=== PATIENT | female | born 1955 | race American Indian/Alaskan Native ===

== ENCOUNTER 2017-10-17 12:26 | Emergency (ER) | payer MEDICARE, OTHER ==
[2017-10-17] MEDS ORDERED: PROTONIX IV ONE (13:11)
[2017-10-17] MEDS ORDERED: ZOFRAN IV ONE (13:11)
[2017-10-17] MEDS ORDERED: NACL 0.9% 1000 ML 1,000 ML IV ONE (13:12)
[2017-10-17] MEDS ORDERED: DILAUDID IV ONE (13:14)
--- NOTE | 2017-10-17 13:14 | Emergency Department Report ---
Blank Doc - Documentation Documentation: 62-year-old female with a history of hypertension, LAP-BAND surgery, and chronic pain for this last complaining of epigastric pain and vomiting after drinking apple juice this a.m. Patient presents with 10/10 upper abdominal pain. On exam patient appears to have discomfort secondary to pain She has epigastric tenderness Labs and meds initiated Patient to be transferred to main side for further treatment
[2017-10-17 13:27] LABS: Bilirubin,Urine NEG (Negative); Blood,Urine NEG (Negative); Color,Urine Yellow (Yellow); Mucus,Urine 3+ /HPF; Urobilinogen,Urine < 2.0 mg/dL (<2.0)
[2017-10-17 13:32] LABS: Basophils # (Auto) 0.1 K/mm3 (0.0-0.1); Basophils % (Auto) 0.5 % (0.0-1.8); Eosinophils # (Auto) 0.1 K/mm3 (0.0-0.4); Eosinophils % (Auto) 0.5 % (0.0-4.3); Hematocrit 41.1 % (30.3-42.9); Hemoglobin 13.6 gm/dl (10.1-14.3); Lymphocytes # (Auto) 2.6 K/mm3 (1.2-5.4); Lymphocytes % (Auto) 19.8 % (13.4-35.0); Mean Corpuscular HGB Conc 33 % (30-34); Mean Corpuscular Hemoglobin 33 pg (28-32); Mean Corpuscular Volume 98 fl (79-97); Monocytes # (Auto) 0.5 K/mm3 (0.0-0.8); Monocytes % (Auto) 4.1 % (0.0-7.3); Platelet Count 253 K/mm3 (140-440); Red Blood Count 4.18 M/mm3 (3.65-5.03); Red Cell Distribution Width 13.7 % (13.2-15.2)
[2017-10-17 13:45] LABS: Alanine Aminotransferase 13 units/L (7-56); Albumin 4.4 g/dL (3.9-5); BUN/Creatinine Ratio 16; Blood Urea Nitrogen 8 mg/dL (7-17); Calcium 9.8 mg/dL (8.4-10.2); Hemolysis Index 2; Lipase 20 units/L (13-60)
--- NOTE | 2017-10-17 13:55 | Emergency Department Report ---
HPI - General Chief Complaint: Nausea/Vomiting/Diarrhea Time Seen by Provider: 10/17/17 13:05 - HPI HPI: Room 3 The patient is a 62-year-old female presenting with a chief complaint of abdominal pain. The patient states she was in her usual state of health until this morning when she developed midepigastric abdominal cramping after drinking apple juice. Patient states she had nausea and vomiting 3 episodes and one episode of diarrhea. Patient states the pain has been intermittent and she currently gives a score of 10/10. Patient denies dysuria or hematuria. Patient denies any history of fever Location: Epigastric Duration: Intermittent since this morning Quality: Cramping Severity: 10/10 Modifying factors: [see above] Context: [see above] Mode of transportation: [not driving] ED Past Medical Hx - Past Medical History Hx Hypertension: Yes Additional medical history: Under the care of Dr. Childs pain management - chronic back pain - Surgical History Additional Surgical History: Lower back surgery, Lap bnd - Family History Family history: no significant - Social History Smoking Status: Current Every Day Smoker (1/3 pack per day) - Medications Home Medications: Home Medications Medication Instructions Recorded Confirmed Last Taken Type HYDROcodone/ACETAMINOPHEN [Emmett 1 each PO Q6HR PRN #20 tablet 05/13/14 Unknown Rx 7.5-325 mg TAB] Metaxalone [Skelaxin] 800 mg PO TID #30 tablet 05/13/14 Unknown Rx Potassium Chloride [K-Dur] 20 meq PO QDAY #3 tablet 06/22/14 Unknown Rx Promethazine [Phenergan TAB] 25 mg PO Q6H #30 tablet 06/22/14 Unknown Rx methylPREDNISolone [Medrol Dose 4 mg PO DAILY 6 Days tab 07/06/14 Unknown Rx Ez] oxyCODONE /ACETAMINOPHEN [Percocet 1 tab PO Q6HR PRN #15 tablet 07/06/14 Unknown Rx 5/325] oxyCODONE /ACETAMINOPHEN [Percocet 1 tab PO Q6HR PRN #16 tablet 07/16/14 Unknown Rx 5/325] HYDROcodone/APAP 5-325 [Emmett 1 each PO Q6HR PRN #14 tablet 09/03/14 Unknown Rx 5-325 mg TAB] Ibuprofen [Motrin 800 MG tab] 800 mg PO Q8H #60 tablet 11/11/14 Unknown Rx diazePAM [Diazepam] 5 mg PO BID #4 tablet 11/11/14 Unknown Rx Ciprofloxacin HCl [Ciprofloxacin 500 mg PO BID #14 tablet 10/17/17 Unknown Rx TAB] HYDROcodone/APAP 5-325 [Emmett 1 - 2 each PO Q6HR PRN #14 tablet 10/17/17 Unknown Rx 5/325] Promethazine [Phenergan] 25 mg MO Q6HR PRN #5 supp.rect 10/17/17 Unknown Rx metroNIDAZOLE [Flagyl] 500 mg PO Q8HR #21 tablet 10/17/17 Unknown Rx ED Review of Systems ROS: Stated complaint: HEAD ACHE/STOMACH PAIN Other details as noted in HPI Constitutional: denies: fever Eyes: denies: eye pain ENT: denies: throat pain Respiratory: no symptoms reported Cardiovascular: denies: chest pain Endocrine: no symptoms reported Gastrointestinal: abdominal pain, nausea, vomiting, diarrhea Genitourinary: denies: dysuria Musculoskeletal: denies: back pain Neurological: denies: headache Physical Exam - Physical Exam Vital Signs: Vital Signs 10/17/17 12:44 Temperature 98.4 F Pulse Rate 95 H Respiratory 18 Rate Blood Pressure 163/95 O2 Sat by Pulse 99 Oximetry Physical Exam: GENERAL: The patient is well-developed well-nourished female lying on stretcher appearing to be in moderate discomfort. [] HEENT: Normocephalic. Atraumatic. NECK: Supple. Trachea midline CHEST/LUNGS: Clear to auscultation. There is no respiratory distress noted. HEART/CARDIOVASCULAR: Regular. There is no tachycardia. There is no gallop rub or murmur. ABDOMEN: Abdomen is soft, with tenderness to palpation in the midepigastric region only. The remainder of the abdomen is soft and completely nontender to palpation. Absent Mcgrath sign. Patient has normal bowel sounds. There is no abdominal distention. SKIN: There is no rash. There is no edema. There is no diaphoresis. NEURO: The patient is awake, alert, and oriented. The patient is cooperative. The patient has normal speech MUSCULOSKELETAL: There is no evidence of acute injury. ED Course Vital Signs 10/17/17 12:44 Temperature 98.4 F Pulse Rate 95 H Respiratory 18 Rate Blood Pressure 163/95 O2 Sat by Pulse 99 Oximetry ED Medical Decision Making - Lab Data Result diagrams: 10/17/17 13:20 10/17/17 13:20 Laboratory Tests 10/17/17 10/17/17 10/17/17 13:20 13:20 Unknown WBC 12.9 H RBC 4.18 Hgb 13.6 Hct 41.1 MCV 98 H MCH 33 H MCHC 33 RDW 13.7 Plt Count 253 Lymph % (Auto) 19.8 [place] % (Auto) 4.1 Eos % (Auto) 0.5 Baso % (Auto) 0.5 Lymph # 2.6 [place] # 0.5 Eos # 0.1 Baso # 0.1 Seg Neutrophils % 75.1 H Seg Neutrophils # 9.7 H Sodium 142 Potassium 4.0 Chloride 102.8 Carbon Dioxide 23 Anion Gap 20 BUN 8 Creatinine 0.5 L Estimated GFR > 60 BUN/Creatinine Ratio 16 Glucose 108 H Calcium 9.8 Total Bilirubin 0.70 AST 23 ALT 13 Alkaline Phosphatase 65 Total Protein 8.6 H Albumin 4.4 Albumin/Globulin Ratio 1.0 Lipase 20 Urine Color Yellow Urine Turbidity Slightly-cloudy Urine pH 5.0 Ur Specific Caro 1.018 Urine Protein 30 mg/dl Urine Glucose (UA) Neg Urine Ketones Neg Urine Blood Neg Urine Nitrite Neg Urine Bilirubin Neg Urine Urobilinogen < 2.0 Ur Leukocyte Esterase Tr Urine WBC (Auto) 3.0 Urine RBC (Auto) 5.0 U Epithel Cells (Auto) 1.0 Urine Mucus 3+ - Radiology Data Radiology results: report reviewed (CT abdomen and pelvis), image reviewed (CT abdomen and pelvis) [place] [address] Cat Scan Report Signed Patient: HERB BOOKER MR#: [id number] : 1955 Acct:[id number] Age/Sex: 62 / F ADM Date: 10/17/17 Loc: ED Attending Dr: Ordering Physician: HILTON COLIN MD Date of Service: 10/17/17 Procedure(s): CT abdomen pelvis wo con Accession Number(s): [id number] cc: HILTON COLIN MD FINAL REPORT EXAM: CT ABDOMEN PELVIS WO CON HISTORY: abd,n,v TECHNIQUE: CT of the abdomen and pelvis without IV contrast. Coronal and sagittal reconstructed imaging provided. PRIORS: None currently available. FINDINGS: ABDOMEN: Stomach with gastric band. Stomach is otherwise unremarkable. Contracted gallbladder, liver, spleen, pancreas, and adrenals are unremarkable. Calcified granuloma in the liver. Kidneys: Cortical cyst upper right kidney measures 5.3 cm. Multiple punctate bilateral renal stones. Largest stone on the left is 3.9 mm and the larger stone on the right measures 3.6 mm. No bilateral hydronephrosis. No ureteral stones. Large calcification near the right ureter on series 2:98 measuring 7.6 mm appears to represent a ovarian vein calcification. There is no abdominal aortic aneurysm. Mild atherosclerotic disease noted. IVC is unremarkable. There is no periaortic or retroperitoneal adenopathy or mass. Sotp-no-hhmfupjt stool. Dense material in the cecum may represent residual contrast. No wall thickening or inflammatory changes. Appendix is normal. The appendix is not identified. There are no pericecal inflammatory changes. Distal small bowel loops on series 2:144 appear mildly thick walled and slightly irregular which includes the terminal ileum. No perforation. No abscess. Mesentery is unremarkable. PELVIS: Uterus is not clearly identified and may be surgically removed, small, or atrophic. Bladder is unremarkable. There is no pelvic mass or adenopathy. Inguinal regions are unremarkable. Bones: No suspicious osseous lesions on this limited examination of the skeleton. Metastatic disease better evaluated with bone scan. Degenerative changes are in the spine. Postsurgical changes in the spine. IMPRESSION: Possible enteritis and terminal ileitis. Please correlate for right lower quadrant. Differential diagnosis includes peristalsing bowel. Stomach with gastric band. Grossly unremarkable. Right renal cyst. Nonobstructing bilateral renal stones. Transcribed By: TYM Dictated By: TARA FERRER MD Electronically Authenticated By: TARA FERRER MD Signed Date/Time: 10/17/171429 DD/ TD/TT: 10/17/17 1430 - Differential Diagnosis acute abdominal pain, bowel obstruction, lap band dysfunction, gastritis Critical care attestation.: If time is entered above; I have spent that time in minutes in the direct care of this critically ill patient, excluding procedure time. ED Disposition Clinical Impression: Acute abdominal pain, Enteritis, Nausea vomiting and diarrhea Disposition: TO HOME OR SELFCARE Is pt being admited?: No Does the pt Need Aspirin: No Condition: Stable Instructions: Acute Nausea and Vomiting (ED), Abdominal Pain (ED) Additional Instructions: Return to the emergency department immediately should you develop worsening symptoms, fever, inability to tolerate food or liquid or any other concerns. Prescriptions: Ciprofloxacin HCl [Ciprofloxacin TAB] 500 mg PO BID #14 tablet HYDROcodone/APAP 5-325 [Emmett 5/325] 1 - 2 each PO Q6HR PRN #14 tablet PRN Reason: Pain metroNIDAZOLE [Flagyl] 500 mg PO Q8HR #21 tablet Promethazine [Phenergan] 25 mg MO Q6HR PRN #5 supp.rect PRN Reason: Vomiting Referrals: JOEL GAUILAR MD [Staff Physician] - 3-5 Days (Dr. Aguilar is a japanese professor. Please follow up with him or your physician for further evaluation) Time of Disposition: 14:44
--- NOTE | 2017-10-17 14:32 | Cat Scan Report ---
FINAL REPORT EXAM: CT ABDOMEN PELVIS WO CON HISTORY: abd,n,v TECHNIQUE: CT of the abdomen and pelvis without IV contrast. Coronal and sagittal reconstructed imaging provided. PRIORS: None currently available. FINDINGS: ABDOMEN: Stomach with gastric band. Stomach is otherwise unremarkable. Contracted gallbladder, liver, spleen, pancreas, and adrenals are unremarkable. Calcified granuloma in the liver. Kidneys: Cortical cyst upper right kidney measures 5.3 cm. Multiple punctate bilateral renal stones. Largest stone on the left is 3.9 mm and the larger stone on the right measures 3.6 mm. No bilateral hydronephrosis. No ureteral stones. Large calcification near the right ureter on series 2:98 measuring 7.6 mm appears to represent a ovarian vein calcification. There is no abdominal aortic aneurysm. Mild atherosclerotic disease noted. IVC is unremarkable. There is no periaortic or retroperitoneal adenopathy or mass. Sidq-es-ysbvaxli stool. Dense material in the cecum may represent residual contrast. No wall thickening or inflammatory changes. Appendix is normal. The appendix is not identified. There are no pericecal inflammatory changes. Distal small bowel loops on series 2:144 appear mildly thick walled and slightly irregular which includes the terminal ileum. No perforation. No abscess. Mesentery is unremarkable. PELVIS: Uterus is not clearly identified and may be surgically removed, small, or atrophic. Bladder is unremarkable. There is no pelvic mass or adenopathy. Inguinal regions are unremarkable. Bones: No suspicious osseous lesions on this limited examination of the skeleton. Metastatic disease better evaluated with bone scan. Degenerative changes are in the spine. Postsurgical changes in the spine. IMPRESSION: Possible enteritis and terminal ileitis. Please correlate for right lower quadrant. Differential diagnosis includes peristalsing bowel. Stomach with gastric band. Grossly unremarkable. Right renal cyst. Nonobstructing bilateral renal stones.
[2017-10-17 15:01] VITALS: BP 139/101
== END 2017-10-17 14:55 | disposition home or self-care (01) ==
LOC: ED 12:26
DX: K52.9 Noninfective gastroenteritis and colitis, unspecified (principal); I10 Essential (primary) hypertension; F17.200 Nicotine dependence, unspecified, uncomplicated; Z88.5 Allergy status to narcotic agent; Z88.8 Allergy status to other drugs, medicaments and biological substances
CPT/HCPCS: 36415; 74176; 80053; 81001; 83690; 85025; 96361; 96374; 96375; 99284; C9113; J1170; J2405; J7030